=== PATIENT | female | born 1945 | race Caucasian/White ===

== ENCOUNTER 2024-04-15 10:56 | Outpatient (CLI) | payer MEDICARE, SELFPAY ==
--- NOTE | ~2024-04-15 | DEXA_ITS ---
Bone Density Report Name: KACY CLEMENT Age: 78 Sex: Female Ethnicity: White Date of : 1945 Indication: postmenopausal; screening for osteoporosis; parental hip fracture; prior fracture; Referring Provider: CHRISTIAN, DIONY Study: Bone densitometry was performed. Exam Date: April 15, 2024 Accession number: [id number] Bone Density: Region BMD T-score Z-score Classification AP Spine(L1-L4) 1.082 0.3 3.0 Normal Femoral Neck (Left) 0.815 -0.3 2.0 Normal Total Hip (Left) 0.987 0.4 2.4 Normal World Health Organization criteria for BMD impression classify patients as: Normal (T-score at or above -1.0), Osteopenia (T-score between -1.0 and -2.5), or Osteoporosis (T-score at or below -2.5). 10-year Fracture Risk: FRAX not reported because: All T-scores for Spine Total, Hip Total, Femoral Neck at or above -1.0 Clinical Information Provided by Patient: Has had a low trauma fracture Parent has had a hip fracture Has used the following medications: HRT (i.e. estrogen/hormone therapy), Vitamin D, Calcium Patient maximum height was 65.0 No regular weight bearing exercise Does not regularly consume dairy products Onset of menses at age 10 Number of children 3 Impression: The patient has normal bone mass. The patient has risk factors, including: parental hip fracture, previous fracture. Discussion: BONE DENSITY IS ABOVE THE MINIMUM DESIRABLE LEVEL AT ALL SKELETAL SITES TESTED. This patient?s bone mineral density is above the minimum desirable level (T-score -1.0 or better) at all sites measured. The patient should follow a healthful lifestyle (good nutrition with adequate calcium and vitamin D, and appropriate weight-bearing exercise). Follow-Up: Consider repeating this study in 5 years or sooner if there is some new clinical indication. Reported by: BIN on 04/15/2024 11:41:00 AM. Reviewed, dictated and finalized at location [facility]
== END 2024-04-15 10:57 | disposition home or self-care (01) ==
LOC: ANHIMG 11:05
PROVIDERS: PCP Internal Medicine; Visit Provider Internal Medicine
DX: Z78.0 Asymptomatic menopausal state (principal)
CPT/HCPCS: 77080